=== PATIENT | male | born 1970 | race Caucasian/White ===

== ENCOUNTER 2023-03-05 12:49 | Emergency (ER) | payer OTHER, BC ==
[2023-03-05] MEDS ORDERED: Sodium Chloride 0.9% 1,000 ML IV ONE (13:07)
[2023-03-05 13:17] LABS: BASOPHILS ABSOLUTE AUTO 0.04 K/mm3 (0.01-0.08); BASOPHILS PERCENT AUTO 0.5 % (0.1-1.2); EOSINOPHILS ABSOLUTE AUTO 0.08 K/mm3 (0.04-0.54); HEMATOCRIT 46.3 % (40.1-51.0); HEMOGLOBIN 15.8 gm/dl (13.7-17.5); IMMATURE GRAN ABSOLUTE AUTO 0.01 K/mm3 (0.00-0.10); IMMATURE GRAN PERCENT AUTO 0.1 % (<=1.0); LYMPHOCYTES PERCENT AUTO 27.9 % (21.8-53.1); MEAN CORPUSCULAR HEMOGLOBIN 29.3 pg (25.7-32.2); MEAN CORPUSCULAR HGB CONC 34.1 g/dl (32.2-35.5); MEAN CORPUSCULAR VOLUME 85.9 fl (79.0-92.2); MEAN PLATELET VOLUME 9.3 fl (9.4-12.3); MONOCYTES PERCENT AUTO 7.6 % (5.3-12.2); NEUTROPHILS ABSOLUTE AUTO 4.96 K/mm3 (1.78-5.38); NEUTROPHILS PERCENT AUTO 62.9 % (34.0-67.9); PLATELET COUNT,PLT 360 K/mm3 (163-337); RED BLOOD CELL COUNT 5.39 M/mm3 (4.63-6.08); WHITE BLOOD CELL COUNT,WBC 7.89 K/mm3 (4.23-9.07)
[2023-03-05 13:23] LABS: INR 0.96; PROTHROMBIN TIME 10.3 SECONDS (9.7-12.0)
[2023-03-05 13:29] LABS: ALBUMIN 4.1 g/dl (3.4-5.0); ANION GAP 12.1 (5-15); BILIRUBIN TOTAL 0.6 mg/dL (0.2-1.0); BUN/CREATININE RATIO 16.4 (14-18); CALCIUM 9.3 mg/dL (8.5-10.1); CREATININE 1.1 mg/dL (0.7-1.3); EST CRCL DRUG DOSING (CG) 88.18 mL/min; POTASSIUM,K 4.1 mEq/L (3.5-5.1); PROTEIN TOTAL,TP 8.2 g/dl (6.4-8.2)
[2023-03-05] MEDS ORDERED: Morphine 2 MG/ML SYRINGE IVPUSH ONE (14:03)
== END 2023-03-05 18:45 | disposition home or self-care (01) ==
LOC: JD.ED 12:49
DX: T14.8XXA Other injury of unspecified body region, initial encounter (principal); E10.9 Type 1 diabetes mellitus without complications; Z88.8 Allergy status to other drugs, medicaments and biological substances; V29.99XA Rider (driver) (passenger) of other motorcycle injured in unspecified traffic accident, initial encounter
CPT/HCPCS: 36415; 70450; 71250; 72125; 73080; 74176; 80053; 85025; 85610; 85730; 93005; 96361; 96374; 99285; J2270; J7030; 93010; 99284